=== PATIENT | male | born 1930 | race Caucasian/White ===

== ENCOUNTER 2019-10-21 11:27 | Outpatient (CLI) | payer MEDICARE, BC ==
--- NOTE | 2019-10-21 11:50 | ULT ---
Renal ultrasound: 10/21/2019 COMPARISON:None available HISTORY:Prostate malignancy TECHNIQUE: Multiplanar grayscale sonographic imaging of the kidneys and urinary bladder obtained. FINDINGS: The right kidney measures9.2 x 4.4 x 4.3 cm and demonstratesa small hypoechoic lesion in th e medial superior cortex measuring 10.2 x 1.1 x 1.1 cm. It is difficult to fully characterize given its small size but likely represents a cyst. The left kidney tmysjxie25.9 x 5.8 x 4.8 cm and demonstratesno mass, hydronephrosis, or stone. The urinary bladderis not well assessed, decompressed and containing a Hager catheter. IMPRESSION:No hydronephrosis. Small hypoechoic right renal lesion. No solid renal mass appreciated.
== END 2019-10-21 11:28 | disposition home or self-care (01) ==
LOC: BICULT 11:27
PROVIDERS: ATTEND Urology
DX: C61 Malignant neoplasm of prostate (principal); N28.9 Disorder of kidney and ureter, unspecified
CPT/HCPCS: 36415; 76770; 84153

== ENCOUNTER 2020-08-15 10:39 | Inpatient (IN) | payer MEDICARE, BC ==
[2020-08-15] MEDS ORDERED: diphenhydrAMINE 50 MG/ML VIAL IVP PRN (14:55)
[2020-08-15] MEDS ORDERED: HYDROcodone/Acetaminophen 5/325 mg Tablet PO PRN (14:55)
[2020-08-15] MEDS ORDERED: Ketorolac Tromethamine 30 MG/ML VIAL IVP PRN (14:55)
[2020-08-15] MEDS ORDERED: Ondansetron PF 4 MG/2 ML Vial IVP PRN (14:55)
[2020-08-15 15:25] LABS: #Lymphocytes 1.4 thou/uL (1.20-3.40); #Monocytes 1.1 thou/uL (0.11-0.59); #Neutrophils 13.5 thou/uL (1.40-6.50); %Basophils 0.1 % (0.0-1.0); %Eosinophils 0.1 % (0.0-10.0); %Lymphocytes 8.6 % (21.0-51.0); %Monocytes 6.6 % (0.0-10.0); %Neutrophils 84.6 % (42.0-75.0); Hemoglobin 10.1 g/dL (14.0-18.0); Mean Corpuscular HGB CONC 31.7 g/dL (32.0-36.0); Mean Corpuscular Hemoglobin 28.9 pg (27.0-31.0); Mean Corpuscular Volume 91.4 fL (78.0-98.0); Mean Platelet Volume 7.4 fL (7.4-10.4); Platelet Count 196 thou/uL (130-400); RBC Distribution Width 14.5 % (11.5-14.5); Red Blood Cell (RBC) Count 3.49 mill/uL (4.70-6.10); White Blood Cell (WBC) Count 15.9 thou/uL (4.8-10.8)
[2020-08-15 15:32] LABS: INR-International Normal Ratio 1.1; Prothrombin Time 13.9 sec (12.0-14.7)
[2020-08-15 15:33] LABS: PTT 33.1 sec (22.9-36.1)
[2020-08-15 15:40] LABS: Anion Gap 15 mmol/L (10-20); BUN (Urea Nitrogen) 18 mg/dL (8.4-25.7); Calc. Creatinine Clearance 0 mL/min (70-130); Calcium 9.6 mg/dL (7.8-10.44); Carbon Dioxide 25 mmol/L (23-31); Chloride 106 mmol/L (98-107); Glucose 131 mg/dL (83-110); Potassium 5.1 mmol/L (3.5-5.1); Sodium 141 mmol/L (136-145)
[2020-08-15 15:42] VITALS: BMI 23.8
[2020-08-15] MEDS ORDERED: Bicalutamide 50 MG TAB PO SCH (17:45)
[2020-08-15] MEDS: cefTRIAXone\\ROCEPHIN 1 GM in Sodium Chloride 0.9% 100 ML IVPB SCH (18:01)
[2020-08-15] MEDS: Sodium Chloride 0.9% 1,000 ML IV SCH (18:01)
[2020-08-15] MEDS: Atorvastatin Calcium 40 MG TAB PO SCH (20:08)
[2020-08-15] MEDS: Docusate 100 MG CAP PO SCH (20:08)
[2020-08-15] MEDS: Famotidine/PF 20 mg/2ml Vial SLOW IVP SCH (20:08)
[2020-08-15] MEDS: Oxybutynin 5 MG TAB PO SCH (21:34)
[2020-08-16] MEDS: Sodium Chloride 0.9% 1,000 ML IV SCH ×2 (03:22→14:11)
[2020-08-16] MEDS: Oxybutynin 5 MG TAB PO SCH ×3 (05:35→21:49)
[2020-08-16 05:51] LABS: #Eosinphils 0.1 thou/uL (0.0-0.7); #Lymphocytes 1.4 thou/uL (1.20-3.40); #Monocytes 0.7 thou/uL (0.11-0.59); #Neutrophils 8.7 thou/uL (1.40-6.50); %Basophils 0.1 % (0.0-1.0); %Eosinophils 0.6 % (0.0-10.0); %Lymphocytes 12.9 % (21.0-51.0); %Monocytes 6.7 % (0.0-10.0); %Neutrophils 79.7 % (42.0-75.0); Hemoglobin 7.9 g/dL (14.0-18.0); Mean Corpuscular HGB CONC 32.8 g/dL (32.0-36.0); Mean Corpuscular Hemoglobin 29.3 pg (27.0-31.0); Mean Corpuscular Volume 89.4 fL (78.0-98.0); Mean Platelet Volume 7.9 fL (7.4-10.4); Platelet Count 155 thou/uL (130-400); RBC Distribution Width 14.3 % (11.5-14.5); Red Blood Cell (RBC) Count 2.69 mill/uL (4.70-6.10)
[2020-08-16 06:09] LABS: Anion Gap 11 mmol/L (10-20); BUN (Urea Nitrogen) 18 mg/dL (8.4-25.7); Calc. Creatinine Clearance 40 mL/min (70-130); Calcium 8.3 mg/dL (7.8-10.44); Carbon Dioxide 25 mmol/L (23-31); Chloride 109 mmol/L (98-107); Glucose 123 mg/dL (83-110); Potassium 4.4 mmol/L (3.5-5.1); Sodium 141 mmol/L (136-145)
[2020-08-16] MEDS: Famotidine/PF 20 mg/2ml Vial SLOW IVP SCH ×2 (08:45→21:49)
[2020-08-16] MEDS: Docusate 100 MG CAP PO SCH ×2 (08:45→21:49)
[2020-08-16] MEDS: Bicalutamide 50 MG TAB PO SCH (08:45)
--- NOTE | 2020-08-16 15:41 | PRG ---
DATE OF SERVICE: 08/16/2020 SUBJECTIVE: No acute events overnight. He did require irrigation one time this morning. Otherwise, not having any bladder discomfort. He denies feeling lightheaded, chest pains, flank pain, nausea, fevers. OBJECTIVE: VITAL SIGNS: Afebrile. Mild hypertension, otherwise vitals stable. Urine clearing on CBI. LUNGS: Unlabored breathing. Symmetric chest expansion. HEART: Regular rate and rhythm. ABDOMEN: Soft, nontender, nondistended. No flank tenderness. No suprapubic tenderness. Hager catheter in good position draining very light urine on slow drip CBI. EXTREMITIES: No peripheral edema. SKIN: Warm and dry. NEUROLOGIC: Alert and oriented x3. PSYCHIATRIC: Normal mood and affect. LABORATORY DATA: Reviewed. White count 11, down from 16 yesterday. Creatinine 1.11. Chloride slightly elevated at 109. PSA yesterday 32.54. ASSESSMENT AND PLAN: 1. Leukocytosis and hematuria secondary to urinary tract infection. Improving with empiric Rocephin. Awaiting urine culture sent from clinic yesterday. 2. Prostate cancer. 3. PSA recurrence, started on Casodex yesterday. 4. Acute blood loss anemia. Trend CBC. He may require transfusion tomorrow if he continues to bleed. 45 minutes spent in patient care, half of which was spent directly [id number]. Discharge expected tomorrow if his hematuria resolves or possibly . Job ID: [id number]
[2020-08-16] MEDS: cefTRIAXone\\ROCEPHIN 1 GM in Sodium Chloride 0.9% 100 ML IVPB SCH (17:46)
[2020-08-16] MEDS: Atorvastatin Calcium 40 MG TAB PO SCH (21:49)
[2020-08-17] MEDS: Sodium Chloride 0.9% 1,000 ML IV SCH ×3 (01:57→21:14)
[2020-08-17] MEDS: Oxybutynin 5 MG TAB PO SCH ×3 (05:34→21:14)
[2020-08-17 06:20] LABS: #Eosinphils 0.2 thou/uL (0.0-0.7); #Lymphocytes 1.4 thou/uL (1.20-3.40); #Monocytes 0.8 thou/uL (0.11-0.59); #Neutrophils 7.2 thou/uL (1.40-6.50); %Basophils 0.2 % (0.0-1.0); %Eosinophils 2.2 % (0.0-10.0); %Lymphocytes 15.1 % (21.0-51.0); %Neutrophils 74.5 % (42.0-75.0); Hemoglobin 6.9 g/dL (14.0-18.0); Mean Corpuscular HGB CONC 31.9 g/dL (32.0-36.0); Mean Corpuscular Hemoglobin 29.1 pg (27.0-31.0); Mean Corpuscular Volume 91.3 fL (78.0-98.0); Mean Platelet Volume 7.7 fL (7.4-10.4); Platelet Count 148 thou/uL (130-400); RBC Distribution Width 14.4 % (11.5-14.5); Red Blood Cell (RBC) Count 2.38 mill/uL (4.70-6.10); White Blood Cell (WBC) Count 9.6 thou/uL (4.8-10.8)
[2020-08-17 06:37] LABS: Anion Gap 11 mmol/L (10-20); BUN (Urea Nitrogen) 14 mg/dL (8.4-25.7); Calc. Creatinine Clearance 47 mL/min (70-130); Calcium 8.1 mg/dL (7.8-10.44); Carbon Dioxide 22 mmol/L (23-31); Chloride 110 mmol/L (98-107); Glucose 96 mg/dL (83-110); Potassium 3.8 mmol/L (3.5-5.1); Sodium 139 mmol/L (136-145)
[2020-08-17] MEDS: Bicalutamide 50 MG TAB PO SCH (08:32)
[2020-08-17] MEDS: Docusate 100 MG CAP PO SCH ×2 (08:32→20:24)
[2020-08-17] MEDS: Famotidine/PF 20 mg/2ml Vial SLOW IVP SCH (08:32)
--- NOTE | 2020-08-17 09:15 | PRG ---
DATE OF SERVICE: 08/17/2020 SUBJECTIVE: The patient reports no problems overnight. He tells me that the catheter has been draining well throughout the night. He did require irrigation a couple of times by his nurse yesterday, each time only retrieving a small clot that seemed to be obstructing with return of good flow of CBI afterwards. Otherwise, his urine has remained mildly hematuric. He denies chest pains, difficulty breathing, weakness, fatigue, flank pain, fevers. REVIEW OF SYSTEMS: 10-point review of systems is otherwise negative. PHYSICAL EXAMINATION: VITAL SIGNS: Afebrile, vitals stable. No acute distress. Conversant. LUNGS: Unlabored breathing. HEART: Regular rate and rhythm. ABDOMEN: Soft, nondistended, nontender. No suprapubic fullness or tenderness. No peripheral edema. SKIN: Warm and dry. NEUROLOGIC: Alert and oriented x3. LABORATORY DATA: Hemoglobin has trended down to 6.9, white count 9.6. Creatinine 0.93. Urine culture pending. Procedure, upon examination this morning, his catheter was not draining. I performed irrigation, retrieving only a very small clot with normal flow CBI afterwards and no significant hematuria. ASSESSMENT AND PLAN: 1. Hospital day 3 acute cystitis with hematuria, prostate cancer, leukocytosis. 2. Continue IV antibiotics. 3. Transfusing 2 units given his acute blood loss anemia. 4. Continue Casodex for his prostate cancer. We will transition to Lupron upon discharge. 40 minutes was spent in the patient's care, half of which was spent [id number]. Job ID: [id number]
[2020-08-17] MEDS ORDERED: FLU VACC QS2020-21(65YR UP)/PF 240 MCG/0.7 ML SYRINGE IM ONE (15:45)
[2020-08-17] MEDS: Atorvastatin Calcium 40 MG TAB PO SCH (20:24)
[2020-08-18] MEDS: Oxybutynin 5 MG TAB PO SCH ×3 (05:22→21:06)
[2020-08-18 06:29] LABS: #Eosinphils 0.4 thou/uL (0.0-0.7); #Lymphocytes 1.4 thou/uL (1.20-3.40); #Monocytes 0.7 thou/uL (0.11-0.59); #Neutrophils 7.5 thou/uL (1.40-6.50); %Lymphocytes 14.1 % (21.0-51.0); %Monocytes 6.8 % (0.0-10.0); %Neutrophils 75.1 % (42.0-75.0); Hemoglobin 10.9 g/dL (14.0-18.0); Mean Corpuscular HGB CONC 32.9 g/dL (32.0-36.0); Mean Corpuscular Hemoglobin 29.3 pg (27.0-31.0); Mean Corpuscular Volume 89.3 fL (78.0-98.0); Mean Platelet Volume 7.6 fL (7.4-10.4); Platelet Count 168 thou/uL (130-400); RBC Distribution Width 14.3 % (11.5-14.5); Red Blood Cell (RBC) Count 3.71 mill/uL (4.70-6.10)
[2020-08-18 06:30] LABS: Anion Gap 11 mmol/L (10-20); BUN (Urea Nitrogen) 14 mg/dL (8.4-25.7); Calc. Creatinine Clearance 49 mL/min (70-130); Calcium 8.4 mg/dL (7.8-10.44); Carbon Dioxide 21 mmol/L (23-31); Chloride 110 mmol/L (98-107); Glucose 95 mg/dL (83-110); Potassium 3.8 mmol/L (3.5-5.1); Sodium 138 mmol/L (136-145)
[2020-08-18] MEDS ORDERED: Aminocaproic Acid 5 GM in Sodium Chloride 0.9% 250 ML 250 ML IV SCH (08:15)
--- NOTE | 2020-08-18 08:55 | PRG ---
DATE OF SERVICE: 08/18/2020 SUBJECTIVE: No problems overnight. He reports no discomfort and overall feels better than yesterday after his blood transfusions. He denies flank pain, nausea, fevers, and suprapubic pain. No problems with the catheter overnight. OBJECTIVE: VITAL SINGS: Afebrile. Mild hypertension, otherwise vitals are stable. No acute distress. Conversant, unlabored breathing. HEART: Regular rate and rhythm. ABDOMEN: Soft, nontender, and nondistended. No suprapubic tenderness. No flank tenderness. Hager catheter draining mildly hematuric urine with very slow-drip CBI. No peripheral edema. LABORATORY DATA: Reviewed. Hemoglobin has responded well to transfusion 6.9 yesterday, 10.9 today. Creatinine 0.90, carbon dioxide is 21 with slight elevation of his chloride. ASSESSMENT AND PLAN: 1. Hospital day #4, radiation cystitis, acute cystitis, hematuria, prostate cancer. 2. Continue Casodex, transition to Lupron at discharge. 3. Starting loading dose of Amicar to help limit his hematuria in hopes that he can discharge tomorrow morning. 4. Continue CBI as needed. 5. GI and DVT prophylaxis-holding anticoagulation given his current bleeding. Job ID: [id number]
[2020-08-18] MEDS: Docusate 100 MG CAP PO SCH ×2 (09:14→21:06)
[2020-08-18] MEDS: Famotidine/PF 20 mg/2ml Vial SLOW IVP SCH (09:14)
[2020-08-18] MEDS: Sodium Chloride 0.9% 1,000 ML IV SCH ×2 (09:15→21:07)
[2020-08-18] MEDS: Bicalutamide 50 MG TAB PO SCH (10:31)
[2020-08-18] MEDS: Atorvastatin Calcium 40 MG TAB PO SCH (21:06)
[2020-08-19] MEDS ORDERED: hydrALAZINE 20 MG/ML VIAL SLOW IVP SCH (04:45)
[2020-08-19] MEDS: Oxybutynin 5 MG TAB PO SCH ×3 (05:02→21:14)
[2020-08-19] MEDS: Sodium Chloride 0.9% 1,000 ML IV SCH ×2 (05:59→15:23)
[2020-08-19] MEDS: Docusate 100 MG CAP PO SCH ×2 (08:52→21:15)
[2020-08-19] MEDS: Famotidine/PF 20 mg/2ml Vial SLOW IVP SCH (08:53)
[2020-08-19] MEDS: Bicalutamide 50 MG TAB PO SCH (08:53)
[2020-08-19 09:29] LABS: #Eosinphils 0.3 thou/uL (0.0-0.7); #Lymphocytes 1.1 thou/uL (1.20-3.40); #Monocytes 0.8 thou/uL (0.11-0.59); #Neutrophils 9.1 thou/uL (1.40-6.50); %Basophils 0.2 % (0.0-1.0); %Eosinophils 2.3 % (0.0-10.0); %Monocytes 6.7 % (0.0-10.0); %Neutrophils 80.8 % (42.0-75.0); Hemoglobin 12.5 g/dL (14.0-18.0); Mean Corpuscular HGB CONC 32.6 g/dL (32.0-36.0); Mean Corpuscular Volume 88.8 fL (78.0-98.0); Mean Platelet Volume 7.1 fL (7.4-10.4); Platelet Count 223 thou/uL (130-400); RBC Distribution Width 14.4 % (11.5-14.5); Red Blood Cell (RBC) Count 4.32 mill/uL (4.70-6.10); White Blood Cell (WBC) Count 11.2 thou/uL (4.8-10.8)
--- NOTE | 2020-08-19 09:37 | PRG ---
DATE OF SERVICE: 08/19/2020 SUBJECTIVE: The patient has become very confused overnight, requiring restraints. He pulled his catheter out and has been urinating into a diaper afterwards. He was beginning to have hallucinations yesterday afternoon, however, had good insight into them, and we attempted to redirect and open his blinds and orient him to place and time. This morning, he remains confused, although pleasant and conversant. He does not have any complaints. OBJECTIVE: VITAL SIGNS: Afebrile, hypertensive overnight, otherwise vitals stable. GENERAL: No acute distress. LUNGS: Unlabored breathing. HEART: Regular rate and rhythm. ABDOMEN: Soft, nontender, nondistended. No suprapubic fullness or tenderness. Wet diaper with small amount of blood. LAB WORK: Pending. Urine culture, Pseudomonas, currently on Levaquin. ASSESSMENT AND PLAN: Hospital day 5, gross hematuria secondary to acute cystitis and radiation cystitis; delirium; hypertension. Hospitalist consulted for assistance with hypertension and delirium. We will attempt to remove restraints throughout the day if his mentation is more clear. Continue Levaquin. Urine overall is clearing well. He has an indwelling catheter simply for urinary incontinence. No history of retention. He should be safe without a catheter for now. Prostate cancer, continue XD Nutrition. Job ID: [id number]
[2020-08-19 09:44] LABS: Anion Gap 16 mmol/L (10-20); BUN (Urea Nitrogen) 14 mg/dL (8.4-25.7); Calc. Creatinine Clearance 46 mL/min (70-130); Calcium 8.9 mg/dL (7.8-10.44); Carbon Dioxide 19 mmol/L (23-31); Chloride 110 mmol/L (98-107); Glucose 95 mg/dL (83-110); Potassium 4.2 mmol/L (3.5-5.1); Sodium 141 mmol/L (136-145)
[2020-08-19] MEDS ORDERED: Clopidogrel Bisulfate 75 MG TAB PO SCH (16:45)
[2020-08-19] MEDS ORDERED: Valsartan 80 MG TAB PO SCH ×2 (16:45)
[2020-08-19] MEDS ORDERED: Haloperidol Lactate 5 MG/ML VIAL SLOW IVP SCH (18:30)
--- NOTE | 2020-08-19 19:11 | PDOC.HOSPP ---
- Subjective Encounter Date: 08/19/20 Encounter Time: 19:00 Subjective: Patient up in bed very confused. - Objective Vital Signs & Weight: Vital Signs (12 hours) Temp Pulse Resp BP Pulse Ox 08/19/20 15:24 97.5 F L 81 18 174/83 H 94 L 08/19/20 11:11 97.6 F 82 18 171/83 H 98 08/19/20 08:40 96 08/19/20 07:42 97.4 F L 93 18 172/94 H 96 Weight Weight 134 lb 6.4 oz I&O: 08/18/20 08/19/20 08/20/20 06:59 06:59 06:59 Intake Total 1770 4240 800 Output Total 1325 2950 Balance 445 1290 800 Result Diagrams: 08/19/20 09:06 08/19/20 09:06 Hospitalist ROS - Review of Systems Other: Unable to obtain - Medication Medications: Active Medications Generic Name Dose Route Start Last Admin Trade Name Freq PRN Reason Stop Dose Admin Atorvastatin Calcium 40 mg 08/15/20 21:00 08/18/20 21:06 Atorvastatin Calcium 40 Mg Tab PO 40 mg HS VARSHA Administration Bicalutamide 50 mg 08/16/20 09:00 08/19/20 08:53 Bicalutamide 50 Mg Tab PO 50 mg DAILY VARSHA Administration Diphenhydramine HCl 25 mg 08/15/20 14:55 08/19/20 03:53 Diphenhydramine 50 Mg/Ml Vial IVP 25 mg Q6H PRN Administration Itching Docusate Sodium 100 mg 08/15/20 21:00 08/19/20 08:52 Docusate 100 Mg Cap PO 100 mg BID VARSHA Administration Famotidine 20 mg 08/18/20 09:00 08/19/20 08:53 Famotidine/Pf 20 Mg/2ml Vial SLOW IVP 20 mg DAILY VARSHA Administration Haloperidol Lactate 5 mg 08/19/20 18:30 08/19/20 18:44 Haloperidol Lactate 5 Mg/Ml Vial SLOW IVP 08/19/20 20:30 5 mg NOW VARSHA Administration Levofloxacin 500 mg/ Device 100 mls @ 100 mls/hr 08/17/20 12:00 08/19/20 11:16 IVPB 100 mls Q24HR VARSHA Administration Aminocaproic Acid 5 gm/ Sodium 270 mls @ 50 mls/hr 08/18/20 08:15 08/18/20 10:22 Chloride IV 270 mls INF VARSHA Administration Sodium Chloride 1,000 mls @ 25 mls/hr 08/19/20 15:00 08/19/20 15:23 Normal Saline 0.9% IV Not Given .Q24H VARSHA Ketorolac Tromethamine 15 mg 08/15/20 14:55 08/18/20 15:13 Ketorolac Tromethamine 30 Mg/Ml Vial IVP 08/20/20 14:56 15 mg Q6H PRN Administration Pain Oxybutynin Chloride 5 mg 08/15/20 22:00 08/19/20 14:06 Oxybutynin 5 Mg Tab PO 5 mg Q8HR VARSHA Administration Quetiapine Fumarate 25 mg 08/19/20 18:00 08/19/20 17:24 Quetiapine Fumarate 25 Mg Tab PO 25 mg 1800 VARSHA Administration - Exam Heart: negative: RRR, no murmur, no gallops, no rubs, normal peripheral pulses, irregular, diminshed peripheral pulses, murmur present, II/IV, III/IV Respiratory: negative: CTAB, no wheezes, no rales, no ronchi, normal chest expan cecilia, no tachypnea, normal percussion, rales, rhonchi, tachypneic, wheezes Gastrointestinal: negative: soft, non-tender, non-distended, normal bowel sounds, no palpable masses, no hepatomegaly, no splenomegaly, no bruit, no guarding, no rigidity, tender to palpation, distended, diminished bowl sounds, voluntary guarding Extremities: negative: no cyanosis, no clubbing, no edema, 1+ LE edema, 2+ LE edema, clubbing Hosp A/P (1) Acute metabolic encephalopathy Code(s): G93.41 - METABOLIC ENCEPHALOPATHY Status: Acute (2) UTI (urinary tract infection) Status: Acute (3) CAD (coronary artery disease) Code(s): I25.10 - ATHSCL HEART DISEASE OF [place] CORONARY ARTERY W/O ANG PCTRS Status: Acute (4) Hematuria Code(s): R31.9 - HEMATURIA, UNSPECIFIED Status: Acute (5) Prostate cancer Code(s): C61 - MALIGNANT NEOPLASM OF PROSTATE Status: Acute (6) Hypertension Code(s): I10 - ESSENTIAL (PRIMARY) HYPERTENSION Status: Acute - Plan Patient is a very pleasant 89-year old male with a history of prostate cancer status post radiation and 29 who came in to the hospital for hematuria. Patient underwent cystoscopy also currently being treated for UTI. Urine cultures indicate Pseudomonas and Enterococcus sensitive to levofloxacin. Patient developed delirium while he was in the hospital. Per the patient's daughter he has not slept for the past 2-3 nights. She also states that he has been hallucinating and hearing voices. We will get a CT head to rule out any acute abnormalities. Will restart patient's home medications. Will start patient on Seroquel. Patient currently in restraints. We will also give as needed Haldol if patient continues to worsen. We will ask family to bring in medication list since urology notes states he will is only on aspirin however the medication list indicates Plavix. We will continue patient's home medication.
[2020-08-19] MEDS: Metoprolol Tartrate 25 MG TAB PO SCH (21:15)
[2020-08-19] MEDS: Atorvastatin Calcium 40 MG TAB PO SCH (21:15)
[2020-08-19] MEDS: Melatonin 3 MG TAB PO SCH (21:15)
[2020-08-20] MEDS ORDERED: Furosemide 20 MG/2 ML VIAL SLOW IVP SCH (01:30)
[2020-08-20 05:27] LABS: #Eosinphils 0.4 thou/uL (0.0-0.7); #Lymphocytes 1.4 thou/uL (1.20-3.40); #Monocytes 0.6 thou/uL (0.11-0.59); #Neutrophils 4.1 thou/uL (1.40-6.50); %Basophils 0.4 % (0.0-1.0); %Eosinophils 6.8 % (0.0-10.0); %Lymphocytes 20.5 % (21.0-51.0); %Monocytes 9.6 % (0.0-10.0); %Neutrophils 62.7 % (42.0-75.0); Hemoglobin 9.7 g/dL (14.0-18.0); Mean Corpuscular Hemoglobin 28.3 pg (27.0-31.0); Mean Corpuscular Volume 88.4 fL (78.0-98.0); Mean Platelet Volume 7.2 fL (7.4-10.4); Platelet Count 199 thou/uL (130-400); RBC Distribution Width 14.4 % (11.5-14.5); Red Blood Cell (RBC) Count 3.44 mill/uL (4.70-6.10); White Blood Cell (WBC) Count 6.6 thou/uL (4.8-10.8)
[2020-08-20 05:52] LABS: Anion Gap 11 mmol/L (10-20); BUN (Urea Nitrogen) 16 mg/dL (8.4-25.7); Calc. Creatinine Clearance 46 mL/min (70-130); Calcium 8.1 mg/dL (7.8-10.44); Carbon Dioxide 22 mmol/L (23-31); Chloride 110 mmol/L (98-107); Glucose 106 mg/dL (83-110); Potassium 3.7 mmol/L (3.5-5.1); Sodium 139 mmol/L (136-145)
[2020-08-20] MEDS: Oxybutynin 5 MG TAB PO SCH ×3 (06:42→21:17)
[2020-08-20] MEDS: Docusate 100 MG CAP PO SCH ×2 (08:16→20:20)
[2020-08-20] MEDS: Metoprolol Tartrate 25 MG TAB PO SCH ×2 (08:17→20:20)
[2020-08-20] MEDS: Valsartan 80 MG TAB PO SCH (08:17)
[2020-08-20] MEDS: Famotidine/PF 20 mg/2ml Vial SLOW IVP SCH (08:17)
[2020-08-20] MEDS: Bicalutamide 50 MG TAB PO SCH (08:17)
--- NOTE | 2020-08-20 08:37 | RAD ---
PORTABLE CHEST 1 VIEW: Date: 08/20/2020 Time: 0031 hours HISTORY: Cough. COMPARISON: 10/05/2018. FINDINGS: Changes of median sternotomy are again seen. The heart size is borderline. There are patchy opacities in the lung bases. Small accompanying effusions may be present. No pneumothoraces are noted. The aor ta is tortuous. There are degenerative changes in the right shoulder joint. IMPRESSION: Findings are suspicious for pneumonia. POS: OFF
[2020-08-20] MEDS ORDERED: Valsartan 80 MG TAB PO SCH (09:00)
[2020-08-20] MEDS ORDERED: Clopidogrel Bisulfate 75 MG TAB PO SCH (09:00)
--- NOTE | 2020-08-20 11:12 | CT ---
CT BRAIN WITHOUT CONTRAST: Date: 08/19/2020 HISTORY: Altered mental status. FINDINGS: No evidence of acute infarct, hemorrhage, midline shift, or abnormal extra-axial fluid collections ar e seen. 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 The ventricular size is appropriate and the basilar cisterns are patent. The bony calvar ium is intact. There is mucosal disease in the paranasal sinuses. IMPRESSION: No CT evidence of acute intracranial process. POS: OFF
[2020-08-20] MEDS ORDERED: Benzonatate 100 MG CAP PO PRN (12:53)
--- NOTE | 2020-08-20 14:24 | CON ---
DATE OF CONSULTATION: 08/20/2020 CHIEF COMPLAINT: 1. Urinary tract infection. 2. Prostate cancer with recurrence. 3. Acute blood loss anemia. 4. Leukocytosis secondary to urinary tract infection. HISTORY OF PRESENT ILLNESS: Mr. Wayne Fallon is a very pleasant 89-year-old white male, who resides near [place], [place]. The patient was admitted on 08/15 with signs of urosepsis. The patient does have a history of gross hematuria and UTI due to pseudomonas and enterococcus, and is being treated with antibiotics for that. The patient apparently has had some confusion over the last 48 hours, is scheduled to undergo CT scan of the head today. This appears to be delirium due to systemic metabolic encephalopathy. The patient has urologic history significant for prostate cancer and recently started on Casodex. He has had a PSA recurrence. PHYSICAL EXAMINATION: GENERAL: This is a pleasant white male, in no apparent distress. He is alert and oriented today and provides all of his own history, which is validated by his nursing staff, has been correct. They do not think he is any longer having delirium. HEAD, EYES, EARS, NOSE, AND THROAT: Extraocular movements are intact. Sclerae are anicteric. Oropharynx is clear. NECK: Supple. LUNGS: Clear anteriorly and superiorly with some crackles heard posteriorly at the bilateral bases. CARDIAC: Regular rate and rhythm without murmur, rub, or gallop. ABDOMEN: Soft and nontender above the umbilicus. Medially below the umbilicus, there is some fullness, but the patient is not very perceptive of it. GENITOURINARY: Hager catheter is no longer in place. The patient's diaper is wet. There is some blood present in it, suggesting hematuria. The patient's urine output previously was progressively increasing, was about 2 L on 08/19. Overnight, he has had diapers on secondary to the patient self-removing his Hager catheter. EXTREMITIES: Appear within normal limits. No clubbing, cyanosis, or edema. VITAL SIGNS: Temperature 97.9, pulse 64, respiratory rate 14, the patient has a saturation of 97% on room air, and blood pressure is 157/75. LABORATORY EVALUATION: The patient's white count today down to 6600 from 11,200 yesterday. Hemoglobin is 9.7 with hematocrit of 30.4. Left shift of 80.8% present yesterday, is now in the normal range of 62.7. Serum chemistry showed the patient's blood urea nitrogen stable at 16 with a creatinine 0.95, indicating relative dry state. PSA obtained on 08/15/2020 returned at 32.54, indicative of recurrence of prostate cancer. Microbiology; the patient's urine culture from 08/15/2020 showed the presence of Pseudomonas aeruginosa and presumptive enterococcus species. The pseudomonas was pansensitive to all tested antibiotics including fluoroquinolones and ceftazidime. The patient previously had a urine culture with almost identical pseudomonas and enterococcus organisms back in November of this year. There, his Enterococcus faecalis was pansensitive except for tetracycline. The patient is currently on Levaquin as antibiotic. ASSESSMENT AND PLAN: 1. Urinary tract infection with systemic metabolic encephalopathy. The patient appears to be improving on appropriate antibiotic coverage with fluoroquinolone coverage. 2. History of prostate cancer. The patient will follow up with Dr. Delgado regarding this. He has had a recurrence and was recently started on Casodex. 3. Gross hematuria. The patient reportedly has undergone cystoscopic evaluation by Dr. Delgado. Continues to have blood in his urine today, although there are no gross clots observed in his undergarments. 4. Outlet obstruction concerns. The patient at least to my exam, does not appear to empty his bladder well, consideration must be given over the next 24 to 48 hours just to whether the patient needs to be on intermittent catheterization or catheter replacement. For now, continue trial of no catheter is appropriate. Total time spent over 35 minutes of consultation, assessment time. Job ID: [id number]
[2020-08-20] MEDS: Sodium Chloride 0.9% 1,000 ML IV SCH (14:55)
[2020-08-20] MEDS: Melatonin 3 MG TAB PO SCH (20:20)
[2020-08-20] MEDS: Atorvastatin Calcium 40 MG TAB PO SCH (20:21)
[2020-08-21] MEDS: Oxybutynin 5 MG TAB PO SCH ×3 (06:01→21:08)
[2020-08-21] MEDS ORDERED: guaiFENesin ER 600 MG TAB PO PRN (06:23)
--- NOTE | 2020-08-21 08:26 | PDOC.HOSPP ---
- Subjective Encounter Date: 08/20/20 Encounter Time: 12:30 Subjective: Patient up in bed much more awake and alert today compared to yesterday - Objective Vital Signs & Weight: Vital Signs (12 hours) Temp Pulse Resp BP Pulse Ox 08/21/20 07:35 97.7 F 72 18 176/76 H 96 08/21/20 03:17 97.4 F L 65 14 147/80 H 93 L 08/21/20 00:13 97.4 F L 62 14 147/72 H 97 Weight Weight 134 lb 6.4 oz I&O: 08/20/20 08/21/20 08/22/20 06:59 06:59 06:59 Intake Total 1203 1220 Balance 1203 1220 Result Diagrams: 08/20/20 04:56 08/20/20 04:56 Hospitalist ROS - Review of Systems Cardiovascular: denies: chest pain, palpitations, orthopnea, paroxysmal noc. dyspnea, edema, light headedness, other Gastrointestinal: denies: nausea, vomiting, abdominal pain, diarrhea, constipation, melena, hematochezia, other Genitourinary: denies: dysuria, frequency, incontinence, hematuria, retention, other - Medication Medications: Active Medications Generic Name Dose Route Start Last Admin Trade Name Freq PRN Reason Stop Dose Admin Atorvastatin Calcium 40 mg 08/19/20 21:00 08/20/20 20:21 Atorvastatin Calcium 40 Mg Tab PO 40 mg HS VARSHA Administration Benzonatate 100 mg 08/20/20 12:53 08/21/20 03:26 Benzonatate 100 Mg Cap PO 100 mg TIDPRN PRN Administration Cough Bicalutamide 50 mg 08/16/20 09:00 08/20/20 08:17 Bicalutamide 50 Mg Tab PO 50 mg DAILY VARSHA Administration Diphenhydramine HCl 25 mg 08/15/20 14:55 08/19/20 03:53 Diphenhydramine 50 Mg/Ml Vial IVP 25 mg Q6H PRN Administration Itching Docusate Sodium 100 mg 08/15/20 21:00 08/20/20 20:20 Docusate 100 Mg Cap PO 100 mg BID VARSHA Administration Famotidine 20 mg 08/18/20 09:00 08/20/20 08:17 Famotidine/Pf 20 Mg/2ml Vial SLOW IVP 20 mg DAILY VARSHA Administration Guaifenesin 600 mg 08/21/20 06:23 08/21/20 06:33 Guaifenesin Er 600 Mg Tab PO 600 mg Q6H PRN Administration Cough Aminocaproic Acid 5 gm/ Sodium 270 mls @ 50 mls/hr 08/18/20 08:15 08/18/20 10:22 Chloride IV 270 mls INF VARSHA Administration Sodium Chloride 1,000 mls @ 25 mls/hr 08/19/20 15:00 08/20/20 14:55 Normal Saline 0.9% IV Not Given .Q24H VARSHA Levofloxacin 500 mg 08/20/20 09:00 08/20/20 08:17 Levofloxacin 500 Mg Tab PO 500 mg DAILY VARSHA Administration Melatonin 3 mg 08/19/20 21:00 08/20/20 20:20 Melatonin 3 Mg Tab PO 3 mg HS VARSHA Administration Metoprolol Tartrate 25 mg 08/19/20 21:00 08/20/20 20:20 Metoprolol Tartrate 25 Mg Tab PO 25 mg BID VARSHA Administration Oxybutynin Chloride 5 mg 08/15/20 22:00 08/21/20 06:01 Oxybutynin 5 Mg Tab PO 5 mg Q8HR VARSHA Administration Quetiapine Fumarate 25 mg 08/19/20 18:00 08/20/20 17:42 Quetiapine Fumarate 25 Mg Tab PO 25 mg 1800 VARSHA Administration Valsartan 160 mg 08/20/20 09:00 08/20/20 08:17 Valsartan 80 Mg Tab PO 160 mg DAILY VARSHA Administration - Exam Neck: negative: supple, symmetric, no JVD, no thyromegaly, no lymphadenopathy, no carotid bruit, JVD Heart: negative: RRR, no murmur, no gallops, no rubs, normal peripheral pulses, irregular, diminshed peripheral pulses, murmur present, II/IV, III/IV Respiratory: negative: CTAB, no wheezes, no rales, no ronchi, normal chest expansion, no tachypnea, normal percussion, rales, rhonchi, tachypneic, wheezes Gastrointestinal: negative: soft, non-tender, non-distended, normal bowel sounds, no palpable masses, no hepatomegaly, no splenomegaly, no bruit, no guarding, no rigidity, tender to palpation, distended, diminished bowl sounds, voluntary guarding Hosp A/P (1) Acute metabolic encephalopathy Code(s): G93.41 - METABOLIC ENCEPHALOPATHY Status: Acute (2) UTI (urinary tract infection) Status: Acute (3) CAD (coronary artery disease) Code(s): I25.10 - ATHSCL HEART DISEASE OF [place] CORONARY ARTERY W/O ANG PCTRS Status: Acute (4) Hematuria Code(s): R31.9 - HEMATURIA, UNSPECIFIED Status: Acute (5) Prostate cancer Code(s): C61 - MALIGNANT NEOPLASM OF PROSTATE Status: Acute (6) Hypertension Code(s): I10 - ESSENTIAL (PRIMARY) HYPERTENSION Status: Acute - Plan Patient is a very pleasant 89-year old male with a history of prostate cancer status post radiation and 29 who came in to the hospital for hematuria. Patient underwent cystoscopy also currently being treated for UTI. Urine cultures indicate Pseudomonas and Enterococcus sensitive to levofloxacin. Patient developed delirium while he was in the hospital. Per the patient's daughter he has not slept for the past 2-3 nights. She also states that he has been hallucinating and hearing voices. We will get a CT head to rule out any acute abnormalities. Will restart patient's home medications. Will start patient on Seroquel. Patient currently in restraints. We will also give as needed Haldol if patient continues to worsen. We will ask family to bring in medication list since urology notes states he will is only on aspirin however the medication list indicates Plavix. We will continue patient's home medication. 08/20 patient medically stable currently. His aspirin is been held by urology he has a significant history of stents. Patient is having hematuria his H&H is low normal. Recommended restarting the aspirin as soon as possible. We will discontinue the Seroquel. Patient at baseline. Chest x-ray done last night indicated possible infiltrates. He has no elevated leukocytosis nor fever we will continue to monitor. He is currently on Levaquin we will continue that for now. Will check labs in a.m. patient was given IV diuretics last night
[2020-08-21] MEDS: Bicalutamide 50 MG TAB PO SCH (08:38)
[2020-08-21] MEDS: Famotidine/PF 20 mg/2ml Vial SLOW IVP SCH (08:38)
[2020-08-21] MEDS: Valsartan 80 MG TAB PO SCH (08:38)
[2020-08-21] MEDS: Metoprolol Tartrate 25 MG TAB PO SCH ×2 (08:38→20:22)
[2020-08-21] MEDS: Docusate 100 MG CAP PO SCH ×2 (08:38→20:22)
[2020-08-21] MEDS: hydrALAZINE 20 MG/ML VIAL SLOW IVP PRN (09:04)
[2020-08-21 09:54] LABS: #Eosinphils 0.6 thou/uL (0.0-0.7); #Monocytes 0.5 thou/uL (0.11-0.59); #Neutrophils 6.1 thou/uL (1.40-6.50); %Basophils 0.2 % (0.0-1.0); %Eosinophils 6.1 % (0.0-10.0); %Lymphocytes 21.5 % (21.0-51.0); %Monocytes 5.8 % (0.0-10.0); %Neutrophils 66.4 % (42.0-75.0); Hemoglobin 11.6 g/dL (14.0-18.0); Mean Corpuscular HGB CONC 33.1 g/dL (32.0-36.0); Mean Corpuscular Hemoglobin 29.4 pg (27.0-31.0); Mean Corpuscular Volume 89.1 fL (78.0-98.0); Mean Platelet Volume 6.9 fL (7.4-10.4); Platelet Count 209 thou/uL (130-400); RBC Distribution Width 14.5 % (11.5-14.5); Red Blood Cell (RBC) Count 3.95 mill/uL (4.70-6.10); White Blood Cell (WBC) Count 9.2 thou/uL (4.8-10.8)
[2020-08-21 10:12] LABS: Anion Gap 13 mmol/L (10-20); BUN (Urea Nitrogen) 14 mg/dL (8.4-25.7); Calc. Creatinine Clearance 47 mL/min (70-130); Calcium 8.4 mg/dL (7.8-10.44); Carbon Dioxide 24 mmol/L (23-31); Chloride 107 mmol/L (98-107); Glucose 141 mg/dL (83-110); Potassium 3.6 mmol/L (3.5-5.1); Sodium 140 mmol/L (136-145)
[2020-08-21] MEDS: Sodium Chloride 0.9% 1,000 ML IV SCH (15:00)
[2020-08-21 17:11] LABS: SARS-CoV-2 IgG Ab Non-Reactive (NonReactive); SARS-CoV-2 IgG Index 0.22 S/CO (< 1.40)
--- NOTE | 2020-08-21 19:13 | CON ---
DATE OF CONSULTATION: 08/21/2020 CHIEF COMPLAINT: 1. Urinary tract infection due to pseudomonas and enterococcus. 2. Gross hematuria. 3. Radiation cystitis. 4. Prostate cancer with history of recurrence. 5. Acute blood loss anemia. 6. Leukocytosis secondary to urinary tract infection. HISTORY OF PRESENT ILLNESS: Mr. Wayne Fallon is a very pleasant 89-year-old white male, who resides near [place], [place] and is a routine patient of Dr. Nguyễn Delgado. The patient underwent cystoscopic evaluation and did undergo hospital admission on 08/15 with signs of urosepsis. The patient has a history of gross hematuria and UTI due to combination of pseudomonas and enterococcus, for which he has been treated with antibiotics. During the hospitalization, the patient had development of altered mental status and confusion, which lasted for about 48 hours. The patient's delirium improved dramatically during hospitalization. He is now alert and awake. PAST MEDICAL HISTORY: 1. Urologic history is significant for prostate cancer and he has been started on Casodex for that. 2. Coronary artery disease, status post stenting. The patient has been on aspirin for anticoagulation in the past and there is consideration of restarting that while the patient is recovering from his combination of UTI and radiation cystitis. PHYSICAL EXAMINATION: VITAL SIGNS: Temperature is 98.7, pulse 72, respiration 18, O2 saturation on room air is 95%. Current blood pressure is 137/65. GENERAL: This is a pleasant awake and alert white male, in no apparent distress. He is acting as his own historian today. His history appears appropriate to his chart record. HEAD, EYES, EARS, NOSE, AND THROAT: Extraocular movements are intact. Sclerae are anicteric. Oropharynx is clear. NECK: Supple. LUNGS: Clear to auscultation bilaterally. The patient's previously heard crackles appear to have cleared somewhat, which were heard at the bilateral bases yesterday. CARDIAC: There is a regular rate and rhythm without murmur, rub, or gallop. ABDOMEN: Soft and nontender above the umbilicus and below the umbilicus. Yesterday, we felt there was some fullness below the umbilicus level. GENITOURINARY: Hager catheter is no longer in place and the patient is voiding into a diaper. He does report having voided immediately prior to his examination. No longer has a ball like mass below the umbilicus. EXTREMITIES: Appear within normal limits. No clubbing, cyanosis, or edema. LABORATORY STUDIES: The patient's white count is 9200, hemoglobin 11.6 with hematocrit of 35.1. There is no left shift today with 66% neutrophils. Serum chemistry showed the patient's current blood urea nitrogen at 14, creatinine 0.94. Electrolytes are all within normal limits. Glucose is elevated at 141. ASSESSMENT AND PLAN: 1. Urinary tract infection with systemic metabolic encephalopathy. The patient's encephalopathy has improved. He is on fluoroquinolone coverage at the present time. 2. History of prostate cancer. The patient will follow up in Dr. Delgado's office with regard to this. He has had a recurrence of his prostate cancer and is currently treated with Casodex. 3. Gross hematuria. The patient has undergone cystoscopic evaluation by Dr. Delgado. Hematuria may be due to a combination of multi organism UTI in the presence of previously irradiated bladder and prostate field. 4. Outlet obstruction concerns. The patient's Hager catheter is out. He does not appear to be over distended. At the present time is voiding unassisted into a diaper. Over 35 minutes of consultation and assessment time was spent on evaluation of this patient. Job ID: [id number]
[2020-08-21] MEDS: Atorvastatin Calcium 40 MG TAB PO SCH (20:22)
[2020-08-21] MEDS: Melatonin 3 MG TAB PO SCH (20:22)
[2020-08-22] MEDS: Oxybutynin 5 MG TAB PO SCH ×3 (05:38→21:16)
[2020-08-22] MEDS: Valsartan 80 MG TAB PO SCH (08:18)
[2020-08-22] MEDS: Famotidine/PF 20 mg/2ml Vial SLOW IVP SCH (08:18)
[2020-08-22] MEDS: Docusate 100 MG CAP PO SCH ×2 (08:18→21:17)
[2020-08-22] MEDS: Metoprolol Tartrate 25 MG TAB PO SCH ×2 (08:18→21:17)
[2020-08-22] MEDS: Bicalutamide 50 MG TAB PO SCH (08:18)
--- NOTE | 2020-08-22 08:33 | PDOC.HOSPP ---
- Subjective Encounter Date: 08/21/20 Encounter Time: 11:45 Subjective: Patient up in bed no complaints. - Objective Vital Signs & Weight: Vital Signs (12 hours) Temp Pulse Resp BP Pulse Ox 08/22/20 07:00 97.7 F 67 16 163/77 H 96 08/22/20 03:25 97.7 F 66 14 165/85 H 96 08/21/20 23:42 97.6 F 70 16 153/85 H 95 Weight Weight 134 lb 6.4 oz I&O: 08/21/20 08/22/20 08/23/20 06:59 06:59 06:59 Intake Total 1220 828 Balance 1220 828 Result Diagrams: 08/21/20 09:41 08/21/20 09:41 Hospitalist ROS - Review of Systems Cardiovascular: denies: chest pain, palpitations, orthopnea, paroxysmal noc. dyspnea, edema, light headedness, other Gastrointestinal: denies: nausea, vomiting, abdominal pain, diarrhea, constipation, melena, hematochezia, other Genitourinary: denies: dysuria, frequency, incontinence, hematuria, retention, other - Medication Medications: Active Medications Generic Name Dose Route Start Last Admin Trade Name Freq PRN Reason Stop Dose Admin Atorvastatin Calcium 40 mg 08/19/20 21:00 08/21/20 20:22 Atorvastatin Calcium 40 Mg Tab PO 40 mg HS VARSHA Administration Benzonatate 100 mg 08/20/20 12:53 08/21/20 03:26 Benzonatate 100 Mg Cap PO 100 mg TIDPRN PRN Administration Cough Bicalutamide 50 mg 08/16/20 09:00 08/22/20 08:18 Bicalutamide 50 Mg Tab PO 50 mg DAILY VARSHA Administration Diphenhydramine HCl 25 mg 08/15/20 14:55 08/19/20 03:53 Diphenhydramine 50 Mg/Ml Vial IVP 25 mg Q6H PRN Administration Itching Docusate Sodium 100 mg 08/15/20 21:00 08/22/20 08:18 Docusate 100 Mg Cap PO 100 mg BID VARSHA Administration Famotidine 20 mg 08/18/20 09:00 08/22/20 08:18 Famotidine/Pf 20 Mg/2ml Vial SLOW IVP 20 mg DAILY VARSHA Administration Guaifenesin 600 mg 08/21/20 06:23 08/21/20 06:33 Guaifenesin Er 600 Mg Tab PO 600 mg Q6H PRN Administration Cough Hydralazine HCl 20 mg 08/19/20 07:43 08/21/20 09:04 Hydralazine 20 Mg/Ml Vial SLOW IVP 20 mg Q6H PRN Administration Hypertension SBP/DBP > 170/100 Aminocaproic Acid 5 gm/ Sodium 270 mls @ 50 mls/hr 08/18/20 08:15 08/18/20 10:22 Chloride IV 270 mls INF VARSHA Administration Sodium Chloride 1,000 mls @ 25 mls/hr 08/19/20 15:00 08/21/20 15:00 Normal Saline 0.9% IV Not Given .Q24H VARSHA Levofloxacin 500 mg 08/20/20 09:00 08/22/20 08:18 Levofloxacin 500 Mg Tab PO 500 mg DAILY VARSHA Administration Melatonin 3 mg 08/19/20 21:00 08/21/20 20:22 Melatonin 3 Mg Tab PO 3 mg HS VARSHA Administration Metoprolol Tartrate 25 mg 08/19/20 21:00 08/22/20 08:18 Metoprolol Tartrate 25 Mg Tab PO 25 mg BID VARSHA Administration Oxybutynin Chloride 5 mg 08/15/20 22:00 08/22/20 05:38 Oxybutynin 5 Mg Tab PO 5 mg Q8HR VARSHA Administration Valsartan 160 mg 08/20/20 09:00 08/22/20 08:18 Valsartan 80 Mg Tab PO 160 mg DAILY VARSHA Administration - Exam Neck: negative: supple, symmetric, no JVD, no thyromegaly, no lymphadenopathy, no carotid bruit, JVD Heart: negative: RRR, no murmur, no gallops, no rubs, normal peripheral pulses, irregular, diminshed peripheral pulses, murmur present, II/IV, III/IV Respiratory: negative: CTAB, no wheezes, no rales, no ronchi, normal chest expansion, no tachypnea, normal percussion, rales, rhonchi, tachypneic, wheezes Hosp A/P (1) Acute metabolic encephalopathy Code(s): G93.41 - METABOLIC ENCEPHALOPATHY Status: Acute (2) UTI (urinary tract infection) Status: Acute (3) CAD (coronary artery disease) Code(s): I25.10 - ATHSCL HEART DISEASE OF [place] CORONARY ARTERY W/O ANG PCTRS Status: Acute (4) Hematuria Code(s): R31.9 - HEMATURIA, UNSPECIFIED Status: Acute (5) Prostate cancer Code(s): C61 - MALIGNANT NEOPLASM OF PROSTATE Status: Acute (6) Hypertension Code(s): I10 - ESSENTIAL (PRIMARY) HYPERTENSION Status: Acute - Plan Patient is a very pleasant 89-year old male with a history of prostate cancer status post radiation and 29 who came in to the hospital for hematuria. Patient underwent cystoscopy also currently being treated for UTI. Urine cultures indicate Pseudomonas and Enterococcus sensitive to levofloxacin. Patient developed delirium while he was in the hospital. Per the patient's daughter he has not slept for the past 2-3 nights. She also states that he has been hallucinating and hearing voices. We will get a CT head to rule out any acute abnormalities. Will restart patient's home medications. Will start patient on Seroquel. Patient currently in restraints. We will also give as needed Haldol if patient continues to worsen. We will ask family to bring in medication list since urology notes states he will is only on aspirin however the medication list indicates Plavix. We will continue patient's home medication. 08/20 patient medically stable currently. His aspirin is been held by urology he has a significant history of stents. Patient is having hematuria his H&H is low normal. Recommended restarting the aspirin as soon as possible. We will discontinue the Seroquel. Patient at baseline. Chest x-ray done last night indicated possible infiltrates. He has no elevated leukocytosis nor fever we will continue to monitor. He is currently on Levaquin we will continue that for now. Will check labs in a.m. patient was given IV diuretics last night 08/21 we will stop Seroquel. We will continue melatonin. Stop IV fluids. Patient Covid test was negative. Would resume aspirin as soon as possible. Patient's warehouse shipper is Dr. Kern. Will sign off since patient is back to his baseline.
[2020-08-22] MEDS ORDERED: RIBOFLAVIN PO SCH (09:00)
[2020-08-22] MEDS ORDERED: RIBOFLAVIN 100 MG PO SCH (09:00)
[2020-08-22] MEDS ORDERED: Atorvastatin Calcium 40 MG TAB PO SCH (09:00)
[2020-08-22] MEDS ORDERED: Non-Formulary Item 1 EACH (Multivitamin [Multi-Vitamin Daily] 1 TABLET Tablet) PO SCH (09:00)
[2020-08-22] MEDS: Multivit, Therapeutic 1 TAB PO SCH (10:40)
[2020-08-22] MEDS: Famotidine 20 MG TAB PO SCH ×2 (10:40→21:17)
[2020-08-22] MEDS ORDERED: Valsartan 80 MG TAB PO SCH ×2 (13:58→14:15)
[2020-08-22] MEDS: hydrALAZINE 20 MG/ML VIAL SLOW IVP PRN (16:09)
--- NOTE | 2020-08-22 16:13 | PDOC.HOSPP ---
- Subjective Encounter Date: 08/22/20 Encounter Time: 11:15 Subjective: Patient up in bed no complaints. - Objective Vital Signs & Weight: Vital Signs (12 hours) Temp Pulse Resp BP Pulse Ox 08/22/20 15:20 98.5 F 74 18 186/74 H 100 08/22/20 11:00 97.6 F 76 16 159/61 H 99 08/22/20 08:18 96 08/22/20 07:00 97.7 F 67 16 163/77 H 96 Weight Weight 134 lb 6.4 oz I&O: 08/21/20 08/22/20 08/23/20 06:59 06:59 06:59 Intake Total 1220 828 Balance 1220 828 Result Diagrams: 08/21/20 09:41 08/21/20 09:41 Hospitalist ROS - Review of Systems Respiratory: denies: cough, dry, shortness of breath, hemoptysis, SOB with excertion, pleuritic pain, sputum, wheezing, other Cardiovascular: denies: chest pain, palpitations, orthopnea, paroxysmal noc. dyspnea, edema, light headedness, other Gastrointestinal: denies: nausea, vomiting, abdominal pain, diarrhea, constipation, melena, hematochezia, other - Medication Medications: Active Medications Generic Name Dose Route Start Last Admin Trade Name Freq PRN Reason Stop Dose Admin Atorvastatin Calcium 40 mg 08/19/20 21:00 08/21/20 20:22 Atorvastatin Calcium 40 Mg Tab PO 40 mg HS VARSHA Administration Benzonatate 100 mg 08/20/20 12:53 08/21/20 03:26 Benzonatate 100 Mg Cap PO 100 mg TIDPRN PRN Administration Cough Bicalutamide 50 mg 08/16/20 09:00 08/22/20 08:18 Bicalutamide 50 Mg Tab PO 50 mg DAILY VARSHA Administration Diphenhydramine HCl 25 mg 08/15/20 14:55 08/19/20 03:53 Diphenhydramine 50 Mg/Ml Vial IVP 25 mg Q6H PRN Administration Itching Docusate Sodium 100 mg 08/15/20 21:00 08/22/20 08:18 Docusate 100 Mg Cap PO 100 mg BID VARSHA Administration Famotidine 20 mg 08/22/20 09:00 08/22/20 10:40 Famotidine 20 Mg Tab PO Not Given BID VARSHA Guaifenesin 600 mg 08/21/20 06:23 08/21/20 06:33 Guaifenesin Er 600 Mg Tab PO 600 mg Q6H PRN Administration Cough Hydralazine HCl 20 mg 08/19/20 07:43 08/21/20 09:04 Hydralazine 20 Mg/Ml Vial SLOW IVP 20 mg Q6H PRN Administration Hypertension SBP/DBP > 170/100 Aminocaproic Acid 5 gm/ Sodium 270 mls @ 50 mls/hr 08/18/20 08:15 08/18/20 10:22 Chloride IV 270 mls INF VARSHA Administration Levofloxacin 500 mg 08/20/20 09:00 08/22/20 08:18 Levofloxacin 500 Mg Tab PO 500 mg DAILY VARSHA Administration Melatonin 3 mg 08/19/20 21:00 08/21/20 20:22 Melatonin 3 Mg Tab PO 3 mg HS VARSHA Administration Metoprolol Tartrate 25 mg 08/19/20 21:00 08/22/20 08:18 Metoprolol Tartrate 25 Mg Tab PO 25 mg BID VARSHA Administration Multivitamins 1 tab 08/22/20 09:00 08/22/20 10:40 Multivit, Therapeutic 1 Tab PO 1 tab DAILY VARSHA Administration Oxybutynin Chloride 5 mg 08/15/20 22:00 08/22/20 15:15 Oxybutynin 5 Mg Tab PO 5 mg Q8HR VARSHA Administration - Exam Neck: negative: supple, symmetric, no JVD, no thyromegaly, no lymphadenopathy, no carotid bruit, JVD Heart: negative: RRR, no murmur, no gallops, no rubs, normal peripheral pulses, irregular, diminshed peripheral pulses, murmur present, II/IV, III/IV Respiratory: negative: CTAB, no wheezes, no rales, no ronchi, normal chest expansion, no tachypnea, normal percussion, rales, rhonchi, tachypneic, wheezes Hosp A/P (1) Acute metabolic encephalopathy Code(s): G93.41 - METABOLIC ENCEPHALOPATHY Status: Acute (2) UTI (urinary tract infection) Status: Acute (3) CAD (coronary artery disease) Code(s): I25.10 - ATHSCL HEART DISEASE OF [place] CORONARY ARTERY W/O ANG PCTRS Status: Acute (4) Hematuria Code(s): R31.9 - HEMATURIA, UNSPECIFIED Status: Acute (5) Prostate cancer Code(s): C61 - MALIGNANT NEOPLASM OF PROSTATE Status: Acute (6) Hypertension Code(s): I10 - ESSENTIAL (PRIMARY) HYPERTENSION Status: Acute - Plan Patient is a very pleasant 89-year old male with a history of prostate cancer status post radiation and 29 who came in to the hospital for hematuria. Patient underwent cystoscopy also currently being treated for UTI. Urine cultures indicate Pseudomonas and Enterococcus sensitive to levofloxacin. Patient developed delirium while he was in the hospital. Per the patient's daughter he has not slept for the past 2-3 nights. She also states that he has been hallucinating and hearing voices. We will get a CT head to rule out any acute abnormalities. Will restart patient's home medications. Will start patient on Seroquel. Patient currently in restraints. We will also give as needed Haldol if patient continues to worsen. We will ask family to bring in medication list since urology notes states he will is only on aspirin however the medication list indicates Plavix. We will continue patient's home medication. 08/20 patient medically stable currently. His aspirin is been held by urology he has a significant history of stents. Patient is having hematuria his H&H is low normal. Recommended restarting the aspirin as soon as possible. We will discontinue the Seroquel. Patient at baseline. Chest x-ray done last night indicated possible infiltrates. He has no elevated leukocytosis nor fever we will continue to monitor. He is currently on Levaquin we will continue that for now. Will check labs in a.m. patient was given IV diuretics last night 08/21 we will stop Seroquel. We will continue melatonin. Stop IV fluids. Patient Covid test was negative. Would resume aspirin as soon as possible. Patient's ribber is Dr. Kern. Will sign off since patient is back to his baseline. 08/22 patient's home meds were updated. Again I would recommend restarting the aspirin when okay with urology given the fact that he has been having hematuria. His H&H has been stable. I will go ahead and sign off I have asked the nurse to notify urology
--- NOTE | 2020-08-22 18:58 | PRG ---
DATE OF SERVICE: 08/22/2020 SUBJECTIVE: Patient states he is feeling fine. He has been voiding into a diaper as he cannot control his bladder well and the urine has been a light pink color, but he denies any severe hematuria, inability to void, or difficulty urinating. He is mentating much better and states that he feels a lot better. He has been up out of bed and walking. He is eating a regular diet. He states he would like to go home. OBJECTIVE: VITAL SIGNS: Temperature 98.5, pulse rate 74, respirations are 18, blood pressure 145/76, and saturation 100% on room air. GENERAL: No apparent distress. Communicative and alert. CARDIOVASCULAR: Regular rate and rhythm. CHEST: Nonlabored breathing. Symmetric expansion of lungs. ABDOMEN: Soft, nontender, and nondistended. Positive bowel sounds. Nonpalpable bladder. GENITALIA: Not examined as the patient has diapers on. EXTREMITIES: No edema. PSYCHIATRIC: Alert and oriented x3. Answering questions appropriately. Appropriate mood and affect. LABORATORY DATA: On laboratory evaluation, the full set of labs are in the [facility] system which I have reviewed. Of note, there are no new labs to review today. Urine culture is pansensitive Pseudomonas. The patient is currently on levofloxacin for this. ASSESSMENT AND PLAN: An 89-year-old white male with history of radiation cystitis and gross hematuria secondary to traumatic Hager removal as well as catheter irritation and urinary tract infection most which has now resolved. He only has mild hematuria which does not require catheter. I would not recommend catheter be replaced as this can increase risk for hematuria. I did recommend the patient continue to use pull-ups for the time being. I will send him home on trospium 20 mg twice a day to use for overactive bladder as this will not interfere with delirium or dementia since it does not cross into the blood-brain barrier. If he is continuing to have overactive bladder symptoms and urge incontinence, he can address this with Dr. Delgado on followup. If his hematuria worsens, he should notify me as I am covering for Dr. Delgado this week and we can evaluate him in the office, so long as his urine remains light pink or clear and he is able to urinate relatively easily, I do not think there will be any significant risk for recurrent clot retention. He is currently on bicalutamide, which he should remain on for his prostate cancer. I feel that he has made enough recovery from his mental status and is ambulating well enough as well as eating well that he could probably go home without any need for physical therapy or snf assistance or any kind of home health. We will insure that he has followup with Dr. Delgado and he can probably be discharged in the morning. Job ID: [id number]
[2020-08-22] MEDS: Melatonin 3 MG TAB PO SCH (21:16)
[2020-08-22] MEDS: Atorvastatin Calcium 40 MG TAB PO SCH (21:16)
[2020-08-23] MEDS: Oxybutynin 5 MG TAB PO SCH (05:07)
[2020-08-23] MEDS ORDERED: metFORMIN 500 MG TAB PO SCH (08:00)
[2020-08-23 08:03] VITALS: BP 162/74; TEMP 98.2
[2020-08-23] MEDS: Famotidine 20 MG TAB PO SCH (08:06)
[2020-08-23] MEDS: Metoprolol Tartrate 25 MG TAB PO SCH (08:06)
[2020-08-23] MEDS: Docusate 100 MG CAP PO SCH (08:07)
[2020-08-23] MEDS: Multivit, Therapeutic 1 TAB PO SCH (08:07)
[2020-08-23] MEDS: Bicalutamide 50 MG TAB PO SCH (08:08)
[2020-08-23] MEDS ORDERED: Hydrochlorothiazide 25 MG TAB PO SCH (09:00)
[2020-08-23] MEDS ORDERED: Valsartan 80 MG TAB PO SCH (09:00)
== END 2020-08-23 11:27 | disposition home or self-care (01) | DRG 698 ==
LOC: SURG A 13:50
PROVIDERS: ADMIT Urology; ATTEND Urology
PROC: 3E1K78Z Irrigation of Genitourinary Tract using Irrigating Substance, Via Natural or Artificial Opening (ICD-10-PCS; principal; 2020-08-15)
PROC: 30233N1 Transfusion of Nonautologous Red Blood Cells into Peripheral Vein, Percutaneous Approach (ICD-10-PCS; 2020-08-17)
DX: N30.41 Irradiation cystitis with hematuria (principal); G93.41 Metabolic encephalopathy; F05 Delirium due to known physiological condition; D62 Acute posthemorrhagic anemia; Z20.828 Contact with and (suspected) exposure to other viral communicable diseases; Z23 Encounter for immunization; C61 Malignant neoplasm of prostate; Y84.2 Radiological procedure and radiotherapy as the cause of abnormal reaction of the patient, or of later complication, without mention of misadventure at the time of the procedure; B96.5 Pseudomonas (aeruginosa) (mallei) (pseudomallei) as the cause of diseases classified elsewhere; R32 Unspecified urinary incontinence; B95.2 Enterococcus as the cause of diseases classified elsewhere; N32.81 Overactive bladder; F03.90 Unspecified dementia, unspecified severity, without behavioral disturbance, psychotic disturbance, mood disturbance, and anxiety; Z78.1 Physical restraint status; Z79.899 Other long term (current) drug therapy; Z79.82 Long term (current) use of aspirin; Z79.84 Long term (current) use of oral hypoglycemic drugs
CPT/HCPCS: 36415; 36430; 70450; 71045; 80048; 84153; 85025; 85610; 85730; 86769; 86850; 86900; 86901; 87077; 87086; 87186; 87804; 90471; 90662; G0008; J0360; J0696; J1200; J1630; J1885; J1940; J1956; J3490; J7050; P9016; S0017; S0028

== ENCOUNTER 2020-09-21 08:40 | Day surgery (SDC) | payer MEDICARE, BC ==
[2020-09-16 15:34] VITALS: BMI 25.7
[2020-09-21 09:08] LABS: #Eosinphils 0.4 thou/uL (0.0-0.7); #Lymphocytes 2.5 thou/uL (1.20-3.40); #Monocytes 0.6 thou/uL (0.11-0.59); #Neutrophils 7.2 thou/uL (1.40-6.50); %Basophils 0.3 % (0.0-1.0); %Eosinophils 3.8 % (0.0-10.0); %Lymphocytes 23.4 % (21.0-51.0); %Monocytes 5.8 % (0.0-10.0); %Neutrophils 66.8 % (42.0-75.0); Hemoglobin 11.9 g/dL (14.0-18.0); Mean Corpuscular HGB CONC 32.4 g/dL (32.0-36.0); Mean Corpuscular Hemoglobin 29.2 pg (27.0-31.0); Mean Corpuscular Volume 90.1 fL (78.0-98.0); Mean Platelet Volume 7.3 fL (7.4-10.4); Platelet Count 189 thou/uL (130-400); RBC Distribution Width 14.7 % (11.5-14.5); Red Blood Cell (RBC) Count 4.08 mill/uL (4.70-6.10); White Blood Cell (WBC) Count 10.7 thou/uL (4.8-10.8)
[2020-09-21 09:15] LABS: Prothrombin Time 13.1 sec (12.0-14.7)
[2020-09-21 09:16] LABS: PTT 29.1 sec (22.9-36.1)
--- NOTE | 2020-09-21 11:24 | CT ---
CT abdomen and pelvis noncontrast Conscious sedation: At least 40 minutes spent with the patient for conscious sedation. HISTORY: Complete urinary incontinence. Desire for suprapubic catheter decompression. FINDINGS: Exam was originally scheduled as a suprapubic catheter placement. After explaining the proc edure and answering all questions, Hager catheter was successfully placed by nursing personnel into and initially completely decompressed urinary bladder. Immediate CT imaging showed complete decompression of the bladder with Hager catheter balloon in good position. Minimal fluid posterior to the urinary bladder. Approximately 200 cc sterile saline was carefully infused through the Hager catheter to distend the u rinary bladder. CT imaging showed mild bladder distention and a small amount of air within the nondependent portion of the bladder. The left ureter is mildly dilated. An additional 250 cc sterile saline was infused into the urinary bladder. Patient did report mild dis comfort (as expected), with conscious sedation applied. Repeat imaging showed no additional distention of the urinary bladder. The distal ureters are seen to be more distended. At this point, t here was concern for bladder rupture. The bladder was decompressed, and a dilute solution of contrast material, approximately 40 cc, was in fused through the Hager catheter. Imaging performed at this point shows no contrast within the fluid immediately surrounding the urinary bladder. The distal ureters, however, were dilated and cont ained contrast. Full CT imaging of the abdomen was then performed, showing prominent distention of the right renal collecting system with contrast material and fluid in the right perinephric and poste rior retroperitoneal tissues. Moderate right renal atrophy. Exact point of forniceal rupture is not clear. The left ureter is also partially opacified with minimal distention of the left renal pelvis. No evidence of rupture on the left. The superiormost CT image shows a nonspecific 1.5 cm oval fluid density cystic lesion just anterior t o the left diaphragm apex. Possibly a pericardial cyst. Calcified granulomata of the liver consistent with healed granulomatous disease. Small hyperdense sto ne in the dependent portion of the gallbladder lumen. 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 Prominent calcification throughout the arterial structures including narrowing of the iliac arteries. Metallic seeds at the prostate bed from prior treatment. IMPRESSION : Suprapubic catheter unable to be placed. Urinary bladder would not distend appropriately. Due to inco mpetent ureterovesicular valves, gross reflux was encountered with right renal calyceal rupture. Cholelithiasis. Findings were called to Dr. Delgado at the time of the exam. Patient will be dismissed and follow-u p clinically with Dr. Delgado. Code CR.
[2020-09-21 12:29] VITALS: BP 188/79; TEMP 96.8
== END 2020-09-21 13:20 | disposition home or self-care (01) ==
LOC: CT 08:40
PROVIDERS: ATTEND Urology
DX: N39.41 Urge incontinence (principal); E78.5 Hyperlipidemia, unspecified; I10 Essential (primary) hypertension; M19.90 Unspecified osteoarthritis, unspecified site; Z79.82 Long term (current) use of aspirin; Z79.84 Long term (current) use of oral hypoglycemic drugs; Z79.899 Other long term (current) drug therapy
CPT/HCPCS: 36415; 74176; 85025; 85610; 85730

== ENCOUNTER 2021-04-11 10:17 | Outpatient (CLI) | payer MEDICARE, BC | END 2021-04-11 10:18 | disposition home or self-care (01) | LOC: BICMAMMO 10:17 | PROVIDERS: ATTEND Internal Medicine Hematology & Oncology | DX: Z13.820 Encounter for screening for osteoporosis (principal); Z79.818 Long term (current) use of other agents affecting estrogen receptors and estrogen levels | CPT/HCPCS: 77080 ==